=== PATIENT | male | born 1990 | race Caucasian/White ===

== ENCOUNTER 2017-06-27 21:40 | Inpatient (IN) | payer OTHER ==
--- NOTE | 2017-06-27 23:31 | HP ---
CIWA Score - CIWA Score Nausea/Vomitin Muscle Tremors: 2 Anxiety: 1-Mildly Anxious Agitation: 4-Moderately Restless Paroxysmal Sweats: 2 Orientation: 0-Oriented Tacttile Disturbances: 0-None Auditory Disturbances: 0-None Visual Disturbances: 0-None Headache: 3-Moderate CIWA-Ar Total Score: 14 Admission ROS BHS - HPI Chief Complaint: WITHDRAWAL SYMPTOMS Allergies/Adverse Reactions: Allergies Allergy/AdvReac Type Severity Reaction Status Date / Time No Known Allergies Allergy Verified 06/27/17 23:29 History of Present Illness: 26 Y.O. MAN WITH A HISTORY OF ALCOHOL DEPENDENCE IS HERE SEEKING DETOX. HE REPORTS HE WENT TO DETOX 3 MONTHS AGO AT ANOTHER FACILITY BUT LEFT AMA. HE REPORTS HE'S ENROLLED IN A MMTP. Exam Limitations: No Limitations - Ebola screening Have you traveled outside of the country in the last 21 days: No (N) Have you had contact with anyone from an Ebola affected area: No Do you have a fever: No - Review of Systems Constitutional: No Symptoms Reported EENT: reports: Tearing, Nose Congestion Respiratory: reports: No Symptoms reported Cardiac: reports: No Symptoms Reported GI: reports: Nausea, Abdominal cramping : reports: No Symptoms Reported Musculoskeletal: reports: No Symptoms Reported Integumentary: reports: No Symptoms Reported Neuro: reports: Tremors Endocrine: reports: No Symptoms Reported Hematology: reports: No Symptoms Reported Psychiatric: reports: Orientated x3, Anxious, Depressed, other (ADD) Other Systems: Reviewed and Negative Patient History - Patient Medical History Hx Anemia: No Hx Asthma: No Hx Chronic Obstructive Pulmonary Disease (COPD): No Hx Cancer: No Hx Cardiac Disorders: No Hx Congestive Heart Failure: No Hx Hypertension: No Hx Hypercholesterolemia: No Hx Pacemaker: No HX Cerebrovascular Accident: No Hx Seizures: No Hx Dementia: No Hx Diabetes: No Hx Gastrointestinal Disorders: No Hx Liver Disease: No Hx Genitourinary Disorders: No Hx Sexually Transmitted Disorders: No Hx Renal Disease (ESRD): No Hx Thyroid Disease: No Hx Human Immunodeficiency Virus (HIV): No Hx Hepatitis C: Yes Hx Depression: Yes Hx Suicide Attempt: No Hx Bipolar Disorder: No Hx Schizophrenia: No Other Medical History: ADD, ANXIETY - Patient Surgical History Past Surgical History: No - PPD History Previous Implant?: Yes Documented Results: Negative w/o proof PPD to be Administered?: Yes - Reproductive History Patient is a Female of Child Bearing Age (11 -55 yrs old): No - Smoking Cessation Smoking history: Current every day smoker Have you smoked in the past 12 months: Yes Aproximately how many cigarettes per day: 20 Initiated information on smoking cessation: Yes 'Breaking Loose' booklet given: 06/27/17 - Substance & Tx. History Hx Alcohol Use: Yes Hx Substance Use: No Substance Use Type: Alcohol Hx Substance Use Treatment: Yes (LAST DETOX 3 MONTHS AGO; CURRENTLY IN A MMTP ) - Substances Abused Alcohol Route: Oral Frequency: Daily Amount used: 8 CANS OF BEER Age of first use: 22 Date of Last Use: 06/26/17 Family Disease History - Family Disease History Family History: Denies Admission Physical Exam [facility] - Vital Signs Vital Signs: Last Vital Signs Temp Pulse Resp BP Pulse Ox 96.1 F L 88 16 127/73 06/27/17 23:45 06/27/17 23:45 06/27/17 23:45 06/27/17 23:45 - Physical General Appearance: Yes: Disheveled, Thin, Tremorous, Irritable, Anxious HEENTM: Yes: Hearing grossly Normal, Normocephalic, Normal Voice Respiratory: Yes: Chest Non-Tender, Lungs Clear, Normal Breath Sounds, No Respiratory Distress, No Accessory Muscle Use Neck: Yes: No masses,lesions,Nodules, Trachea in good position Breast: Yes: Breast Exam Deferred Cardiology: Yes: Regular Rate, S1, S2 Abdominal: Yes: Normal Bowel Sounds, Non Tender, Flat, Soft Genitourinary: Yes: Other (NO COMPLAINTS REPORTED) Back: Yes: Normal Inspection Musculoskeletal: Yes: full range of Motion, Gait Steady, Pelvis Stable Extremities: Yes: Tremors Neurological: Yes: Alert, Normal Response Integumentary: Yes: Normal Color, Dry, Warm Lymphatic: Yes: Within Normal Limits - Diagnostic (1) Alcohol dependence with uncomplicated withdrawal Current Visit: Yes Status: Chronic (2) Opioid dependence on agonist therapy Current Visit: Yes Status: Chronic (3) Underweight Current Visit: Yes Status: Chronic Cleared for Admission [facility] - Detox or Rehab [facility] Level of Care: Medically Managed Detox Regimen/Protocol: Valium [facility] Breath Alcohol Content Breath Alcohol Content: 0 Vital Signs - Vital Signs Vital Signs Refused: No Temperature: 96.1 F Temperature Source: Oral Pulse Rate: 88 Respiratory Rate: 16 Blood Pressure: 127/73 BP Location: Left Arm Blood Pressure Position: Sitting - Height Height: 6 ft - Weight Weight: 130 lb Weight Measurement Method: Standing Scale Body Mass Index (BMI): 17.6 Urine Drug Screen - Test Device Lot Number: [id number] Expiration Date: 03/29/19 - Control Is Test Valid: Yes - Results Drug Screen Negative: No Urine Drug Screen Results: KOSTAS-Cocaine, MTD-Methadone
[2017-06-27 23:46] VITALS: BMI 17.6
[2017-06-27] MEDS ORDERED: NICOTINE POLACRILEX 2 MG GUM BUC PRN (23:52)
[2017-06-27] MEDS ORDERED: P-EPHED 60MG/TRIPROLIDI 2.5MG TABLET PO PRN (23:52)
[2017-06-27] MEDS ORDERED: MENTHOL/PHENOL 1 EACH UD MM PRN (23:52)
[2017-06-27] MEDS ORDERED: MAGNESIUM HYDROX 2400MG/30ML ORAL SUSPENSION 30 ML CUP PO PRN (23:52)
[2017-06-27] MEDS ORDERED: LOPERAMIDE HCL 2 MG CAPSULE PO PRN (23:52)
[2017-06-27] MEDS ORDERED: guaiFENesin/D-METHORPHAN HB 10 ML UNIT-DOSE CUPS PO PRN (23:52)
[2017-06-27] MEDS ORDERED: MAGNESIUM CITRATE 300 ML BOTTLE PO PRN (23:52)
[2017-06-27] MEDS ORDERED: diazePAM 5 MG TABLET PO ONE (23:52)
[2017-06-27] MEDS ORDERED: diazePAM 5 MG TABLET PO PRN (23:52)
[2017-06-27] MEDS ORDERED: IBUPROFEN 400 MG TABLET (FP) PO PRN (23:52)
[2017-06-27] MEDS ORDERED: MAG HYDROX/AL HYDROX/SIMETH 30 ML UNIT-DOSE CUP PO PRN (23:52)
[2017-06-27] MEDS ORDERED: hydrOXYzine PAMOATE 50 MG CAPSULE (FP) PO PRN (23:52)
[2017-06-28] MEDS: diphenhydrAMINE HCL 50 MG CAPSULE PO PRN (01:04)
[2017-06-28] MEDS ORDERED: diazePAM 5 MG TABLET PO ONE (07:06)
[2017-06-28] MEDS: diazePAM 5 MG TABLET PO SCH ×5 (07:13→22:16)
[2017-06-28] MEDS ORDERED: METHADONE HCL 40 MG DISPERSABLE TABLET PO ONE (08:30)
[2017-06-28 10:01] LABS: MCH 29.7 pg (25.7-33.7); MEAN CELL VOLUME 89.9 fl (80-96); MEAN PLT VOLUME 7.3 fl (7.5-11.1); PLATELET COUNT 333 K/MM3 (134-434); RDW 15.4 % (11.9-15.9); WHITE BLOOD COUNT 7.3 K/mm3 (4.0-10.0)
[2017-06-28 10:33] LABS: ALBUMIN 3.2 g/dl (3.4-5.0); ANION GAP 7 (8-16); CALCIUM 8.8 mg/dL (8.5-10.1); CO2 30 mmol/L (21-32); CREATININE 0.8 mg/dL (0.7-1.3); GLUCOSE,RANDOM 78 mg/dL (74-106); SGOT/AST 19 U/L (15-37); SGPT/ALT 22 U/L (12-78)
[2017-06-28 10:36] LABS: ALK PHOS 103 U/L (45-117); BILIRUBIN,TOTAL 0.5 mg/dL (0.2-1.0); TOT PROT 6.3 g/dl (6.4-8.2)
[2017-06-28] MEDS: PRENATAL VITAMINS W/ FOLIC ACID TABLET (FP) PO SCH (11:07)
[2017-06-28] MEDS: diazePAM 5 MG TABLET PO PRN ×2 (11:08→20:14)
[2017-06-28] MEDS: NICOTINE 21 MG/24 HOURS TOPICAL PATCH TD SCH (11:08)
[2017-06-28] MEDS: ACETAMINOPHEN 325 MG TABLET (FP) PO PRN ×2 (11:09→22:17)
--- NOTE | 2017-06-28 12:24 | EKG ---
Test Reason : Blood Pressure : / mmHG Vent. Rate : 062 BPM Atrial Rate : 062 BPM P-R Int : 136 ms QRS Dur : 094 ms QT Int : 416 ms P-R-T Axes : 063 085 080 degrees QTc Int : 422 ms NORMAL SINUS RHYTHM WITH SINUS ARRHYTHMIA NORMAL ECG WHEN COMPARED WITH ECG OF 28-JUN-2017 00:05, NO SIGNIFICANT CHANGE WAS FOUND Confirmed by MISTI DONOVAN MD ([id number]) on 06/28/2017 12:23:45 PM Referred By: Confirmed By:MISTI DONOVAN MD
--- NOTE | 2017-06-28 12:36 | PN ---
[facility] CIWA - CIWA Score Nausea/Vomitin-No Nausea/No Vomiting Muscle Tremors: 4-Moderate,w/Arms Extend Anxiety: 4-Mod. Anxious/Guarded Agitation: 2 Paroxysmal Sweats: 3 Orientation: 0-Oriented Tacttile Disturbances: 3-Moderate Itch/Numb/Burn Auditory Disturbances: 2-Mild Harshness/Frighten Visual Disturbances: 0-None Headache: 0-None Present CIWA-Ar Total Score: 18 BHS Progress Note (SOAP) Subjective: Interrupted sleep, Tremors, Body Aches, Sweating. Objective: PT. A & O X 3, OBSERVED AMBULATING ON UNIT. NO ACUTE DISTRESS. PT. DENIES CHEST PAIN. 06/28/17 12:34 Vital Signs Temperature 97.1 F L 06/28/17 00:52 Pulse Rate 82 06/28/17 00:52 Respiratory Rate 16 06/28/17 03:30 Blood Pressure 110/83 06/28/17 00:52 O2 Sat by Pulse Oximetry (%) Laboratory Tests 06/28/17 06/28/17 07:00 07:00 WBC 7.3 RBC 4.11 Hgb 12.2 Hct 37.0 MCV 89.9 MCH 29.7 MCHC 33.0 RDW 15.4 Plt Count 333 MPV 7.3 L Sodium 145 Potassium 3.6 Chloride 108 H Carbon Dioxide 30 Anion Gap 7 L BUN 14 Creatinine 0.8 Creat Clearance w eGFR > 60 Random Glucose 78 Calcium 8.8 Total Bilirubin 0.5 AST 19 ALT 22 Alkaline Phosphatase 103 Total Protein 6.3 L Albumin 3.2 L LABS NOTED. RPR AND UA RESULTS PENDING. 06/28/17 12:35 Assessment: 06/28/17 12:34 WITHDRAWAL SYMPTOMS. Plan: CONTINUE DETOX.
--- NOTE | 2017-06-28 14:57 | CONSULT ---
[facility] Psychiatric Consult - Data Date of interview: 06/28/17 Admission source: [facility] Identifying data: First admission to [facility] for this 26 y/o male seeking detox treatment on for opioid and cocaine dependence.Patient is single without children,homeless,unemployed and supported on food stamps. Substance Abuse History: Confirmed by patient in this interview. Smoking Cessation. Smoking history: Current every day smoker. Have you smoked in the past 12 months: Yes. Aproximately how many cigarettes per day: 20. Initiated information on smoking cessation: Yes. 'Breaking Loose' booklet given: . - Substance & Tx. History. Hx Alcohol Use: Yes. Hx Substance Use: No. Substance Use Type: Alcohol. Hx Substance Use Treatment: Yes (LAST DETOX 3 MONTHS AGO; CURRENTLY IN A MMTP ). - Substances Abused. Alcohol. Route: Oral. Frequency: Daily. Amount used: 8 CANS OF BEER. Age of first use: 22. Date of Last Use: 06/26/17 Medical History: Hepatitis C. Psychiatric History: Patient admits to one psychiatric hospitalization in [place] (months ago).Diagnosed with ADD and Anxiety Disorder.Used to be prescribed prozac,lorazepam and adderall.No compliant with medications for past four months.No psychiatric OPD care provider.Mr Harris is totally lost to follow up.He denies history of suicide attempts. Physical/Sexual Abuse/Trauma History: No reported history of sexual abuse. Additional Comment: Urine Drug Screen Results: KOSTAS-Cocaine, MTD-Methadone.Noted. Mental Status Exam - Mental Status Exam Alert and Oriented to: Time, Place, Person Cognitive Function: Grossly Intact Patient Appearance: Unkempt, Disheveled Mood: Nervous, Withdrawn Affect: Mood Congruent Patient Behavior: Sedated (light sedation), Fatigued Speech Pattern: Clear, Appropriate Voice Loudness: Normal Thought Process: Goal Oriented Thought Disorder: Not Present Hallucinations: Denies Suicidal Ideation: Denies Homicidal Ideation: Denies Insight/Judgement: Poor Sleep: Well Appetite: Good Muscle strength/Tone: Normal Gait/Station: Normal Psychiatric Findings - Problem List ([place] 1, 2,3) (1) Alcohol dependence with uncomplicated withdrawal Status: Chronic (2) Opioid dependence on agonist therapy Status: Acute (3) Nicotine dependence Status: Acute Qualifiers: Nicotine product type: cigarettes Substance use status: unspecified nicotine-induced disorder Qualified Code(s): F17.219 - Nicotine dependence, cigarettes, with unspecified nicotine-induced disorders (4) Substance induced mood disorder Status: Acute (5) ADD (attention deficit disorder) Status: Acute Comment: Self-report. - Initial Treatment Plan Initial Treatment Plan: Psychoeducation.Detoxification.Prozac 20 mg po daily ( patient's request).Side effects/benefits discussed with the patient.He agrees to follow this careplan.Observation.
[2017-06-28] MEDS ORDERED: THIAMINE HCL 100 MG TABLET (FP) PO SCH (22:00)
[2017-06-29] MEDS: diazePAM 5 MG TABLET PO PRN ×2 (01:20→10:50)
[2017-06-29] MEDS: diphenhydrAMINE HCL 50 MG CAPSULE PO PRN (01:21)
[2017-06-29] MEDS: diazePAM 5 MG TABLET PO SCH ×2 (05:34→13:08)
[2017-06-29] MEDS ORDERED: METHADONE HCL 10 MG TABLET PO ONE (07:30)
[2017-06-29] MEDS ORDERED: METHADONE HCL 10 MG TABLET ONE (08:32)
[2017-06-29] MEDS ORDERED: METHADONE HCL 40 MG DISPERSABLE TABLET ONE (08:32)
[2017-06-29 09:18] VITALS: BP 112/70; PULSE 75; TEMP 98
[2017-06-29] MEDS ORDERED: METHADONE 40 MG, METHADONE 10 MG PO ONE (10:00)
[2017-06-29] MEDS ORDERED: diazePAM 5 MG TABLET PO SCH (10:00)
[2017-06-29] MEDS ORDERED: FLUoxetine HCL 20 MG CAPSULE (FP) PO SCH (10:00)
[2017-06-29] MEDS: PRENATAL VITAMINS W/ FOLIC ACID TABLET (FP) PO SCH (10:47)
[2017-06-29] MEDS: NICOTINE 21 MG/24 HOURS TOPICAL PATCH TD SCH (10:48)
--- NOTE | 2017-06-29 11:27 | PN ---
[facility] CIWA - CIWA Score Nausea/Vomitin-Mild Nausea/No Vomiting Muscle Tremors: 2 Anxiety: 6 Agitation: 4-Moderately Restless Paroxysmal Sweats: 2 Orientation: 0-Oriented Tacttile Disturbances: 2-Mild Itch/Numbness/Burn Auditory Disturbances: 0-None Visual Disturbances: 0-None Headache: 0-None Present CIWA-Ar Total Score: 17 BHS Progress Note (SOAP) Subjective: Anxious, Tremors. Objective: PT. A & O X 3, OBSERVED AMBULATING ON UNIT. NO ACUTE DISTRESS. 06/29/17 11:25 Vital Signs Temperature 98.0 F 06/29/17 09:17 Pulse Rate 75 06/29/17 09:17 Respiratory Rate 18 06/29/17 09:17 Blood Pressure 112/70 06/29/17 09:17 O2 Sat by Pulse Oximetry (%) Laboratory Tests 06/28/17 06/28/17 06/28/17 07:00 07:00 07:00 WBC 7.3 RBC 4.11 Hgb 12.2 Hct 37.0 MCV 89.9 MCH 29.7 MCHC 33.0 RDW 15.4 Plt Count 333 MPV 7.3 L Sodium 145 Potassium 3.6 Chloride 108 H Carbon Dioxide 30 Anion Gap 7 L BUN 14 Creatinine 0.8 Creat Clearance w eGFR > 60 Random Glucose 78 Calcium 8.8 Total Bilirubin 0.5 AST 19 ALT 22 Alkaline Phosphatase 103 Total Protein 6.3 L Albumin 3.2 L RPR Titer Nonreactive LABS NOTED. RESULTS OF ADMISSION UA PENDING. 06/29/17 11:26 Assessment: 06/29/17 11:25 WITHDRAWAL SYMPTOMS. Plan: CONTINUE DETOX.
--- NOTE | 2017-06-29 11:34 | EKG ---
Test Reason : Blood Pressure : / mmHG Vent. Rate : 060 BPM Atrial Rate : 060 BPM P-R Int : 134 ms QRS Dur : 096 ms QT Int : 432 ms P-R-T Axes : 067 086 079 degrees QTc Int : 432 ms SINUS RHYTHM WITH MARKED SINUS ARRHYTHMIA OTHERWISE NORMAL ECG NO PREVIOUS ECGS AVAILABLE Confirmed by SJ FLORES, SEGUN ([id number]) on 06/29/2017 11:34:03 AM Referred By: Confirmed By:SEGUN GUSTAFSON MD
--- NOTE | 2017-06-29 12:55 | PN ---
[facility] Progress Note Note: Patient suddenly quite lethargic, developing over the last 1 hour. Pt. minimally alert, and difficult to rouse. VS: BP: 98/62 (manual); P: 57; O2: 95% ; RR: 14. No known history of recent head trauma. Pt. currently on Valium Detox regimen for Alcohol use. Pt. also on MMTP. DAily Maintenance Dose: 60 mg. However, since pt. did not take normal maintenance dose of 60 mg for several days prior to this Detox admission, pt. was given 40 mg PO yesterday (06/28/2017 ), 50 mg PO today (06/29/2017), and then is scheduled to receive 60 mg PO tomorrow (06/30/2017), then going forward. Report given to Dr. Quintero at [facility]. Patient taken via ambulance to [facility] for further evaluation. Vince Curtis NP
[2017-06-29 16:15] LABS: URINE APPEARANCE SLCLOUDY; URINE BILIRUBIN NEGATIVE (NEGATIVE); URINE BLOOD NEGATIVE (NEGATIVE); URINE COLOR YELLOW; URINE GLUCOSE (UA) NEGATIVE (NEGATIVE); URINE KETONE NEGATIVE (NEGATIVE); URINE LEUK ESTERASE TRACE (NEGATIVE); URINE NITRITE NEGATIVE (NEGATIVE); URINE PROTEIN NEGATIVE (NEGATIVE); URINE UROBILINOGEN NEGATIVE mg/dL (0.2-1.0)
[2017-06-29 16:44] LABS: URINE MUCUS RARE; URINE RBC <1 /hpf (0-3); URINE WBC 5 /hpf (3-5)
[2017-06-29] MEDS ORDERED: ONDANSETRON 4 MG/2 ML VIAL IVPB PRN (17:40)
[2017-06-29] MEDS ORDERED: ACETAMINOPHEN 650 MG SUPP.RECT PR PRN (17:40)
--- NOTE | 2017-06-29 18:02 | HP ---
CHIEF COMPLAINT: Lethargy PCP: none HISTORY OF PRESENT ILLNESS: 26 yo M with significant PMhx of alcohol and heroin abuse(on methadone) presents to ER from [address] [place] [address] lethargic and confused. He recently admitted to [address] [place] [address] for alcohol detox when he was given his methadone dose and valium he became lethargic and minimally response, subsequently transferred via EMS to the ER. In the ER he was found to be unconscious , agonal breathing and cyanotic. His pulse ox was 16% and BVM was initiated and O2 became 100%. He was started on narcan with good response. He subsequently became altered again with shallow respiration and started on Narcan drip. At the time of this history he was awake but confused. Denies CP,palpitations, SOB, abd. pain, N/V. ER course was notable for: (1)CXR showed no acute pathology. (2)Continued on Narcan drip and supplemental O2 (3) Recent Travel: Denies PAST MEDICAL HISTORY:polysubstance abuse, ADHD, Hep C PAST SURGICAL HISTORY: bilateral orbital metal plates following facial trauma. Social History: Smokinppd Alcohol:abuse; 8 cans of beer daily Drugs: cocaine and methadone. Family History: Allergies No Known Allergies Allergy (Verified 06/27/17 23:29) HOME MEDICATIONS: Home Medications Medication Instructions Recorded NK [No Known Home Medication] 06/28/17 REVIEW OF SYSTEMS CONSTITUTIONAL: generalized weakness Absent: fever, chills, diaphoresis, , malaise, loss of appetite, weight change HEENT: Absent: rhinorrhea, nasal congestion, throat pain, throat swelling, difficulty swallowing, mouth swelling, ear pain, eye pain, visual changes CARDIOVASCULAR: Absent: chest pain, syncope, palpitations, irregular heart rate, lightheadedness , peripheral edema RESPIRATORY: Absent: cough, shortness of breath, dyspnea with exertion, orthopnea, wheezing, stridor, hemoptysis GASTROINTESTINAL: Absent: abdominal pain, abdominal distension, nausea, vomiting, diarrhea, constipation, melena, hematochezia GENITOURINARY: Absent: dysuria, frequency, urgency, hesitancy, hematuria, flank pain, genital pain MUSCULOSKELETAL: Absent: myalgia, arthralgia, joint swelling, back pain, neck pain SKIN: Absent: rash, itching, pallor HEMATOLOGIC/IMMUNOLOGIC: Absent: easy bleeding, easy bruising, lymphadenopathy, frequent infections ENDOCRINE: Absent: unexplained weight gain, unexplained weight loss, heat intolerance, cold intolerance NEUROLOGIC: headache Absent:, focal weakness or paresthesias, dizziness, unsteady gait, seizure, mental status changes, bladder or bowel incontinence PSYCHIATRIC: Absent: anxiety, depression, suicidal or homicidal ideation, hallucinations. PHYSICAL EXAMINATION Vital Signs - 24 hr 06/28/17 06/29/17 06/29/17 21:54 00:30 04:09 Temperature 96 F L Pulse Rate 74 Respiratory 16 18 18 Rate Blood Pressure 132/92 06/29/17 06/29/17 06:48 : Temperature 98.3 F 98.0 F Pulse Rate 85 75 Respiratory 18 18 Rate Blood Pressure 122/76 112/70 GENERAL: Awake, alert, confused. NAD HEAD: NC/AT EYES:PERRLA,EOMI, sclera anicteric, conjunctiva clear. No lid lag. EARS, NOSE, THROAT: dry mucous membranes. NECK: supple, no jvd LUNGS: CTAB. No wheezes, and no crackles. No accessory muscle use. HEART: RRR, normal S1 and S2 without murmur, rub or gallop. ABDOMEN: Soft, NT/ND, normoactive bowel sounds, no guarding, no rebound, no masses. No hepatomegaly or splenomegaly. MUSCULOSKELETAL: Normal range of motion at all joints. No bony deformities or tenderness. No CVA tenderness. UPPER EXTREMITIES: 2+ pulses, warm, well-perfused. No cyanosis. No clubbing. No peripheral edema. LOWER EXTREMITIES: 2+ pulses, warm, well-perfused. No calf tenderness. No peripheral edema. multiple abrasions of bilateral feet. NEUROLOGICAL: Cranial nerves II-XII intact. Normal speech. gait not observed. PSYCHIATRIC:lethargic. SKIN: multiple abrasions on soles and heels bilaterally. Laboratory Results - last 24 hr 06/29/17 10:30 Urine Color Yellow Urine Appearance Slcloudy Urine pH 5.0 Urine Protein Negative Urine Glucose (UA) Negative Urine Ketones Negative Urine Blood Negative Urine Nitrite Negative Urine Bilirubin Negative Urine Urobilinogen Negative Ur Leukocyte Esterase Trace Urine RBC <1 Urine WBC 5 Urine Mucus Rare ASSESSMENT/PLAN: 26 yo M with significant PMhx of alcohol and heroin abuse(on methadone) admitted to ICU for adverse reaction to therapeutic methadone. Problem List - Problem (1) Methadone causing adverse effect in therapeutic use Assessment/Plan: * Patient will be admitted to ICU for close monitoring. * Will continue Narcan drip * repeat CXR in AM * repeat labs. * Avoid sedating medication * Supplemental oxygen via NC to maintain spO2 >90% (2) Nicotine dependence Assessment/Plan: * Will give nicotine patch 21mg transdermal Visit type - Emergency Visit Emergency Visit: Yes ED Registration Date: 06/27/17 Care time: The patient presented to the Emergency Department on the above date and was hospitalized for further evaluation of their emergent condition. - New Patient This patient is new to me today: Yes Date on this admission: 06/30/17 - Critical Care Critical Care patient: Yes Total Critical Care Time (in minutes): 35 Critical Care Statement: The care of this patient involved high complexity decision making to prevent further life threatening deterioration of the patient 's condition and/or to evaluate & treat vital organ system(s) failure or risk of failure.
[2017-06-29] MEDS ORDERED: MUPIROCIN 2% TOPICAL OINTMENT FOR DECOLONIZATION NS SCH (22:00)
[2017-06-29] MEDS ORDERED: CHLORHEXIDINE GLUCONATE 4% CLEANSER FOR DECOLONIZATION TP SCH (22:00)
[2017-06-30] MEDS ORDERED: METHADONE 40 MG, METHADONE 20 MG PO SCH (06:00)
[2017-06-30] MEDS ORDERED: METHADONE HCL 40 MG DISPERSABLE TABLET PO SCH (06:00)
[2017-06-30] MEDS ORDERED: diazePAM 5 MG TABLET PO SCH (10:00)
[2017-07-01] MEDS ORDERED: diazePAM 5 MG TABLET PO SCH (10:00)
[2017-07-02] MEDS ORDERED: diazePAM 5 MG TABLET PO SCH (10:00)
== END 2017-06-29 21:53 | disposition short-term general hospital (02) | DRG 773 ==
LOC: YASAS 21:40 → Y3N 23:32
PROVIDERS: ADMIT Internal Medicine Addiction Medicine; ATTEND Internal Medicine Addiction Medicine
PROC: HZ2ZZZZ Detoxification Services for Substance Abuse Treatment (ICD-10-PCS; principal; 2017-06-27)
DX: F10.230 Alcohol dependence with withdrawal, uncomplicated (principal); F11.20 Opioid dependence, uncomplicated; F17.210 Nicotine dependence, cigarettes, uncomplicated; F19.24 Other psychoactive substance dependence with psychoactive substance-induced mood disorder; F98.8 Other specified behavioral and emotional disorders with onset usually occurring in childhood and adolescence; B18.2 Chronic viral hepatitis C; R63.6 Underweight; Z68.1 Body mass index [BMI] 19.9 or less, adult; R53.83 Other fatigue; Z59.0 Homelessness
CPT/HCPCS: 36415; 80053; 81003; 81015; 85027; 86593; 93005; 93010

== ENCOUNTER 2017-06-29 13:22 | Inpatient (IN) | payer OTHER ==
[2017-06-29] MEDS ORDERED: RAPID SEQUENCE INTUBATION KIT NR ONE (14:01)
[2017-06-29] MEDS ORDERED: NALOXONE HCL 0.4 MG/ML VIAL ONE (14:01)
--- NOTE | 2017-06-29 14:13 | PDOC ---
History of Present Illness - General Chief Complaint: Lethargy Stated Complaint: WEAKNESS Time Seen by Provider: 06/29/17 13:25 Exam Limitations: Clinical Condition - History of Present Illness Initial Comments: 26 yo M sent by [facility] for AMS. As per EMS report, patient was previously on methadone, stopped it 5 days ago. He was agitated earlier today (currently in detox for alcohol), was given valium and methadone. Now sent to ED with AMS, lethargy. On initial evaluation patient is unconscious, with agonal breathing, pale and cyanotic. Past History - Past Medical History Allergies/Adverse Reactions: Allergies Allergy/AdvReac Type Severity Reaction Status Date / Time No Known Allergies Allergy Verified 06/27/17 23:29 Home Medications: Ambulatory Orders NK [No Known Home Medication] 06/28/17 Anemia: No Asthma: No Cancer: No Cardiac Disorders: No CVA: No COPD: No CHF: No Dementia: No Diabetes: No GI Disorders: No Disorders: No HTN: No Hypercholesterolemia: No Kidney Stones: No Liver Disease: No Suicide Attempt (Hx): No Seizures: No Thyroid Disease: No - Reproductive History Testicular Surgery: No - Psycho/Social/Smoking Cessation Hx Anxiety: Yes Suicidal Ideation: No Smoking History: Current every day smoker Have you smoked in the past 12 months: Yes Number of Cigarettes Smoked Daily: 20 'Breaking Loose' booklet given: 06/27/17 Hx Alcohol Use: Yes Drug/Substance Use Hx: No Substance Use Type: Alcohol Hx Substance Use Treatment: Yes Review of Systems - Review of Systems Able to Perform ROS?: No *Physical Exam - Physical Exam Comments: GENERAL: Lethargic, cyanotic, does not awaken to noxious stimuli. HEAD: No signs of trauma EYES: Pupils pinpoint and sluggish. ENT: Auricles normal inspection, nares patent, dry mucosa NECK: Normal ROM, supple, no lymphadenopathy, JVD, or masses LUNGS: Agonal breathing. HEART: Bradycardic. ABDOMEN: Soft, normoactive bowel sounds. No guarding, no rebound. No masses EXTREMITIES: No edema. Healing lesion to the L hand. NEUROLOGICAL: Unresponsive. SKIN: Warm, Dry, normal turgor, no rashes or lesions noted. ED Treatment Course - LABORATORY CBC & Chemistry Diagram: 06/29/17 16:05 06/29/17 15:00 Medical Decision Making - Medical Decision Making 06/29/17 14:20 As I was doing initial patient evaluation, patient noted to have intermittent agonal breathing, cyanosis, pallor. I placed him on monitor and found O2Sat to be 16%, then down to 0%. I was able to use BVM and get patient's sat back to 100 %, placed nasopharyngeal airway. Subsequently gave him narcan 0.4mg with good response. Currently satting 100% on NRB, with end tidal CO2 monitor on. Will cont to monitor. 06/29/17 15:25 Patient becoming altered again, respirations becoming more shallow, patient not arousable. Will start Narcan drip. CBC shows significant decrease in H&H form yesterday, will repeat, as this is likely erroneous. 06/29/17 16:56 Case d/w Dr. Goddard, will accept patient to the ICU. Will admit to hospitalist. *DC/Admit/Observation/Transfer Diagnosis at time of Disposition: Adverse effect of methadone in therapeutic use Qualifiers: Encounter type: initial encounter Qualified Code(s): T40.3X5A - Adverse effect of methadone, initial encounter Benzodiazepine-based tranquilizers causing adverse effect Qualifiers: Encounter type: initial encounter Qualified Code(s): T42.4X5A - Adverse effect of benzodiazepines, initial encounter - Discharge Dispostion Condition at time of disposition: Critical Admit: Yes
[2017-06-29] MEDS ORDERED: NALOXONE HCL 0.4 MG/ML VIAL IVPUSH ONE (14:14)
[2017-06-29] MEDS ORDERED: SODIUM CHLORIDE 1,000 ML IV STA (14:14)
[2017-06-29 14:31] VITALS: BMI 17.6
[2017-06-29 15:21] LABS: BASOPHIL 0.7 % (0-2.0); EOSINOPHIL 1.7 % (0-4.5); MCH 29.6 pg (25.7-33.7); MCHC 32.8 g/dl (32.0-35.9); MEAN PLT VOLUME 6.9 fl (7.5-11.1); NEUTROPHILS 69.3 % (42.8-82.8); PLATELET COUNT 228 K/MM3 (134-434); RDW 15.1 % (11.9-15.9); WHITE BLOOD COUNT 7.2 K/mm3 (4.0-10.0)
[2017-06-29] MEDS ORDERED: NALOXONE HCL 2 MG in DEXTROSE 5%-WATER - 495 ML IV SCH (15:30)
[2017-06-29 15:54] LABS: ALBUMIN 2.4 g/dl (3.4-5.0); ALK PHOS 60 U/L (45-117); ANION GAP 3 (8-16); BILIRUBIN,TOTAL 0.2 mg/dL (0.2-1.0); CALCIUM 7.1 mg/dL (8.5-10.1); CO2 32 mmol/L (21-32); CREATININE 0.6 mg/dL (0.7-1.3); GLUCOSE,RANDOM 67 mg/dL (74-106); SGOT/AST 24 U/L (15-37); SGPT/ALT 23 U/L (12-78); TOT PROT 4.8 g/dl (6.4-8.2)
[2017-06-29] MEDS ORDERED: DEXTROSE 50%-WATER - 25 GM/50 ML VIAL IVPUSH ONE (16:10)
[2017-06-29] MEDS ORDERED: DEXTROSE 50%-WATER 50 ML DISP.SYRIN ONE (16:14)
[2017-06-29 16:29] LABS: BASOPHIL 0.6 % (0-2.0); EOSINOPHIL 1.3 % (0-4.5); MCH 29.9 pg (25.7-33.7); MCHC 33.4 g/dl (32.0-35.9); MEAN CELL VOLUME 89.4 fl (80-96); MEAN PLT VOLUME 7.3 fl (7.5-11.1); NEUTROPHILS 72.5 % (42.8-82.8); PLATELET COUNT 326 K/MM3 (134-434); RDW 15.1 % (11.9-15.9); WHITE BLOOD COUNT 11.4 K/mm3 (4.0-10.0)
--- NOTE | 2017-06-29 18:10 | PN ---
Teaching Attending Note Name of Resident: Clifton Olguin ATTENDING PHYSICIAN STATEMENT I saw and evaluated the patient. I reviewed the resident's note and discussed the case with the resident. I agree with the resident's findings and plan as documented. SUBJECTIVE: This is a 26 year old man with a history of ADHD, polysubstance abuse who comes to the ER from [facility] for altered mental status. He is currently awake and alert. He says he was admitted to [facility] yesterday for alcohol detox. He had been on Methadone maintenance 60 mg daily but had stopped taking it several days ago because he wanted to be off it. He was started on Valium detox yesterday. He was also given Methadone 40 mg yesterday.. This morning he was agitated. He was given Valium 10 mg, Methadone 50 mg, and Prozac 20 mg. He became lethargic and difficult to arouse. BP was 98/62, HR 57, RR 14, O2 sat 95%. He was sent to the ER for evaluation. He says he doesn't know what happened but believes he stopped breathing. On arrival, he was noted to be unconscious, pale, cyanotic and breathing agonally. His O2 sat was 16% and BVM was used. O2 sat improved to 100%. He was given Narcan 0.4 mg and he awoke. He again became lethargic with shallow respirations and a Narcan drip was started. OBJECTIVE: Vital Signs Period Temp Pulse Resp BP Sys/Escobar Pulse Ox Last 24 Hr 98.4 F 58-104 6-14 102-121/74-84 21-100 HEART: S1S2, RRR LUNGS: Clear ABDOMEN: Soft, non-tender, non-distended, normal BS EXTREMITIES: No edema ASSESSMENT AND PLAN: This is a 26 year old man with a history of ADHD, polysubstance abuse who presented to the ER from [facility] with altered mental status. 1. Acute toxic metabolic encephalopathy and acute hypoxic respiratory failure secondary to substance abuse, Methadone, Valium - Continue Narcan drip - Hold Methadone - Admit to ICU - Continue oxygen to maintain saturation > 90% 2. Alcohol withdrawal - Continue Valium detox 3. Polysubstance abuse (cocaine, heroin, alcohol) 4. Continuous alcohol abuse 5. Nicotine dependence - Nicotine patch 6. ADHD
[2017-06-29 19:59] LABS: URINE APPEARANCE CLEAR; URINE BILIRUBIN NEGATIVE (NEGATIVE); URINE BLOOD NEGATIVE (NEGATIVE); URINE COLOR LTYELLOW; URINE GLUCOSE (UA) 1+ (NEGATIVE); URINE KETONE NEGATIVE (NEGATIVE); URINE LEUK ESTERASE NEGATIVE (NEGATIVE); URINE NITRITE NEGATIVE (NEGATIVE); URINE PROTEIN NEGATIVE (NEGATIVE); URINE UROBILINOGEN NEGATIVE mg/dL (0.2-1.0)
[2017-06-29 20:21] LABS: URINE MARIJUANA THC NEGATIVE ng/ml (CUTOFF=50)
[2017-06-29] MEDS ORDERED: ACETAMINOPHEN 650 MG SUPP.RECT PR PRN (21:07)
[2017-06-29] MEDS ORDERED: CHLORHEXIDINE GLUCONATE 4% CLEANSER FOR DECOLONIZATION TP SCH (22:00)
--- NOTE | 2017-06-29 22:00 | CONSULT ---
Consult Consult Specialty:: Pulm/CCM Reason for Consultation:: AMS in setting of possible opioid overdose - History of Present Illness Chief Complaint: AMS History of Present Illness: 26 yomwith Hx of heroin and alcohol abuse in rehab at [facility]. As per EMS report, patient was previously on methadone, stopped it 5 days ago. He was agitated earlier today and was given valium and methadone and became altered and lethargic. In ED RR5 and agonal. Resuscitated with BVM, Narcan pushes and Narcan drip. Now awake and oriented x3 with regular respirations. He is transferred to ICU on Narcan drip for monitoring. In ICU HD stable HR 96, BP 125/84, RR20 on NC 2L. Slight tremors to BUE, no hallucinations or agitation. Tolerating po. Narcan drip d/c'd. Call [facility] for current meds and continued standing valium po TID, nicotine patch and antidepressant. - Past Medical History Psych: Yes: Depression, Other (Opioid and alcohol abuse) - Alcohol/Substance Use Hx Alcohol Use: Yes - Smoking History Smoking history: Current every day smoker Have you smoked in the past 12 months: Yes Aproximately how many cigarettes per day: 20 - Social History Usual Living Arrangement: Other (Rehab center) Home Medications - Allergies Allergies/Adverse Reactions: Allergies Allergy/AdvReac Type Severity Reaction Status Date / Time No Known Allergies Allergy Verified 06/27/17 23:29 - Home Medications Home Medications: Ambulatory Orders NK [No Known Home Medication] 06/28/17 Family Disease History - Family Disease History Family History: Unremarkable Review of Systems Unable to obtain ROS, reason: AMS Physical Exam Vital Signs: Vital Signs Temperature 97.9 F 06/29/17 19:56 Pulse Rate 84 06/29/17 19:56 Respiratory Rate 16 06/29/17 19:56 Blood Pressure 114/78 06/29/17 19:56 O2 Sat by Pulse Oximetry (%) 100 06/29/17 19:56 Constitutional: Yes: Thin Eyes: Yes: WNL HENT: Yes: WNL, Atraumatic, Normocephalic Neck: Yes: WNL, Trachea Midline Cardiovascular: Yes: Regular Rate and Rhythm Respiratory: Yes: CTA Bilaterally Gastrointestinal: Yes: Soft, Other (NND,NT) Renal/: Yes: WNL, Other (Voiding) Musculoskeletal: Yes: WNL Extremities: Yes: WNL Edema: No Peripheral Pulses WNL: Yes Neurological: Yes: Tremors ...Motor Strength: WNL Labs: CBC,CMP WBC 11.4 K/mm3 (4.0-10.0) H D 06/29/17 16:05 RBC 3.88 M/mm3 (4.00-5.60) L D 06/29/17 16:05 Hgb 11.6 GM/dL (11.7-16.9) L D 06/29/17 16:05 Hct 34.6 % (35.4-49) L D 06/29/17 16:05 MCV 89.4 fl (80-96) 06/29/17 16:05 MCH 29.9 pg (25.7-33.7) 06/29/17 16:05 MCHC 33.4 g/dl (32.0-35.9) 06/29/17 16:05 RDW 15.1 % (11.9-15.9) 06/29/17 16:05 Plt Count 326 K/MM3 (134-434) D 06/29/17 16:05 MPV 7.3 fl (7.5-11.1) L 06/29/17 16:05 Neutrophils % 72.5 % (42.8-82.8) 06/29/17 16:05 Lymphocytes % 17.5 % (8-40) 06/29/17 16:05 Monocytes % 8.1 % (3.8-10.2) 06/29/17 16:05 Eosinophils % 1.3 % (0-4.5) 06/29/17 16:05 Basophils % 0.6 % (0-2.0) 06/29/17 16:05 Sodium 143 mmol/L (136-145) 06/29/17 15:00 Potassium 3.5 mmol/L (3.5-5.1) 06/29/17 15:00 Chloride 108 mmol/L (98-107) H 06/29/17 15:00 Carbon Dioxide 32 mmol/L (21-32) 06/29/17 15:00 Anion Gap 3 (8-16) L 06/29/17 15:00 BUN 11 mg/dL (7-18) D 06/29/17 15:00 Creatinine 0.6 mg/dL (0.7-1.3) L D 06/29/17 15:00 Creat Clearance w eGFR > 60 (>60) 06/29/17 15:00 Random Glucose 67 mg/dL (74-106) L 06/29/17 15:00 Calcium 7.1 mg/dL (8.5-10.1) L 06/29/17 15:00 Total Bilirubin 0.2 mg/dL (0.2-1.0) D 06/29/17 15:00 AST 24 U/L (15-37) D 06/29/17 15:00 ALT 23 U/L (12-78) 06/29/17 15:00 Alkaline Phosphatase 60 U/L (45-117) D 06/29/17 15:00 Total Protein 4.8 g/dl (6.4-8.2) L D 06/29/17 15:00 Albumin 2.4 g/dl (3.4-5.0) L D 06/29/17 15:00 Problem List - Problems (1) Methadone causing adverse effect in therapeutic use Code(s): T40.3X5A - ADVERSE EFFECT OF METHADONE, INITIAL ENCOUNTER Qualifiers : Encounter type: initial encounter Qualified Code(s): T40.3X5A - Adverse effect of methadone, initial encounter (2) Nicotine dependence Code(s): F17.200 - NICOTINE DEPENDENCE, UNSPECIFIED, UNCOMPLICATED Qualifiers : Nicotine product type: cigarettes Substance use status: unspecified nicotine-induced disorder Qualified Code(s): F17.219 - Nicotine dependence, cigarettes, with unspecified nicotine-induced disorders (3) Opioid dependence on agonist therapy Code(s): F11.20 - OPIOID DEPENDENCE, UNCOMPLICATED (4) Substance induced mood disorder Code(s): F19.94 - OTH PSYCHOACTIVE SUBSTANCE USE, UNSP W MOOD DISORDER (5) Alcohol dependence with uncomplicated withdrawal Code(s): F10.230 - ALCOHOL DEPENDENCE WITH WITHDRAWAL, UNCOMPLICATED (6) Underweight Code(s): R63.6 - UNDERWEIGHT Assessment/Plan 26 yom with Hx of heroin and alcohol abuse in rehab at [facility] admitted with AMS 2/2 opioid overdose now resuscitated on narcan drip. Plan: -Detox MD consult -Monitor for DT -CIWA protocol -Cont valium 5mg TID -Cont Nicotine patch -Cont antidepressant -NC O2 as needed for o2 sat>92% -Aspiration precautions -Advance diet as angelina
[2017-06-29] MEDS: diazePAM 5 MG TABLET PO SCH (22:09)
[2017-06-29] MEDS: MUPIROCIN 2% TOPICAL OINTMENT FOR DECOLONIZATION NS SCH (22:10)
[2017-06-29] MEDS ORDERED: ONDANSETRON 4 MG/2 ML VIAL IVPUSH PRN (22:26)
[2017-06-30] MEDS: diazePAM 5 MG TABLET PO SCH ×3 (05:55→23:50)
[2017-06-30 07:37] LABS: MCH 29.3 pg (25.7-33.7); MCHC 32.9 g/dl (32.0-35.9); MEAN CELL VOLUME 89.2 fl (80-96); PLATELET COUNT 293 K/MM3 (134-434); RDW 15.1 % (11.9-15.9); WHITE BLOOD COUNT 7.9 K/mm3 (4.0-10.0)
[2017-06-30 07:54] LABS: ALBUMIN 3.1 g/dl (3.4-5.0); ALK PHOS 69 U/L (45-117); ANION GAP 4 (8-16); BILIRUBIN,TOTAL 0.3 mg/dL (0.2-1.0); CALCIUM 8.6 mg/dL (8.5-10.1); CO2 36 mmol/L (21-32); CREATININE 0.7 mg/dL (0.7-1.3); GLUCOSE,RANDOM 107 mg/dL (74-106); SGOT/AST 20 U/L (15-37); SGPT/ALT 26 U/L (12-78); TOT PROT 6.4 g/dl (6.4-8.2)
--- NOTE | 2017-06-30 09:05 | EKG ---
Test Reason : Blood Pressure : / mmHG Vent. Rate : 076 BPM Atrial Rate : 076 BPM P-R Int : 138 ms QRS Dur : 090 ms QT Int : 390 ms P-R-T Axes : 067 089 078 degrees QTc Int : 438 ms NORMAL SINUS RHYTHM NONSPECIFIC INTRAVENTRICULAR CONDUCTION DEFECT WHEN COMPARED WITH ECG OF 28-JUN-2017 07:21, NO SIGNIFICANT CHANGE WAS FOUND Confirmed by ANAY CURRY MD ([id number]) on 06/30/2017 9:04:30 AM Referred By: Confirmed By:ANAY CURRY MD
[2017-06-30] MEDS ORDERED: FLUoxetine HCL 10 MG CAPSULE (FP) PO SCH (10:00)
[2017-06-30] MEDS ORDERED: PT OWN MED DRAWER 7, Y5N ONE ×2 (11:00→11:12)
[2017-06-30] MEDS: MUPIROCIN 2% TOPICAL OINTMENT FOR DECOLONIZATION NS SCH ×2 (11:08→21:28)
--- NOTE | 2017-06-30 11:10 | PN ---
Physical Exam: SUBJECTIVE: Patient seen and examined. PAtient anxious to get out of bed, requesting valium for anxiety. Straight necessary this morning to allow bladder emptying. OBJECTIVE: Vital Signs Period Temp Pulse Resp BP Sys/Escobar Pulse Ox Last 24 Hr 97.9 F-99.1 F 56-104 12-22 86-126/59-84 98-100 GEN: Very thin HEART: S1S2, RRR LUNGS: Clear ABDOMEN: Soft, non-tender, non-distended, normal BS NEURO: alert and orientedx3 EXTREMITIES: No edema Laboratory Results - last 24 hr 06/29/17 06/29/17 06/30/17 19:50 19:50 06:15 WBC 7.9 D RBC 4.09 Hgb 12.0 Hct 36.5 MCV 89.2 MCH 29.3 MCHC 32.9 RDW 15.1 Plt Count 293 MPV 7.0 L Sodium Potassium Chloride Carbon Dioxide Anion Gap BUN Creatinine Creat Clearance w eGFR Random Glucose Calcium Total Bilirubin AST ALT Alkaline Phosphatase Total Protein Albumin Urine Color Ltyellow Urine Appearance Clear Urine pH 6.0 Urine Protein Negative Urine Glucose (UA) 1+ H Urine Ketones Negative Urine Blood Negative Urine Nitrite Negative Urine Bilirubin Negative Urine Urobilinogen Negative Ur Leukocyte Esterase Negative Opiates Screen Negative Methadone Screen Positive Barbiturate Screen Negative Phencyclidine Screen Negative Ur Amphetamines Screen Negative MDMA (Ecstasy) Screen Negative Benzodiazepines Screen Positive Cocaine Screen Positive U Marijuana (THC) Screen Negative 06/30/17 06:15 WBC RBC Hgb Hct MCV MCH MCHC RDW Plt Count MPV Sodium 140 Potassium 3.9 Chloride 100 Carbon Dioxide 36 H Anion Gap 4 L BUN 7 D Creatinine 0.7 Creat Clearance w eGFR > 60 Random Glucose 107 H D Calcium 8.6 D Total Bilirubin 0.3 D AST 20 ALT 26 Alkaline Phosphatase 69 Total Protein 6.4 D Albumin 3.1 L D Urine Color Urine Appearance Urine pH Urine Protein Urine Glucose (UA) Urine Ketones Urine Blood Urine Nitrite Urine Bilirubin Urine Urobilinogen Ur Leukocyte Esterase Opiates Screen Methadone Screen Barbiturate Screen Phencyclidine Screen Ur Amphetamines Screen MDMA (Ecstasy) Screen Benzodiazepines Screen Cocaine Screen U Marijuana (THC) Screen Active Medications Generic Name Dose Route Start Last Admin Trade Name Freq PRN Reason Stop Dose Admin Acetaminophen 650 mg 06/29/17 21:07 Tylenol Suppository - [place] Q6H PRN FEVER OR PAIN Chlorhexidine Gluconate 1 applic 06/29/17 22:00 06/29/17 22:09 Hibiclens For Decolonization - TP 1 applic HS JG Administration Diazepam 5 mg 06/29/17 22:00 06/30/17 05:55 Valium - PO 5 mg TID JG Administration Fluoxetine HCl 30 mg 06/30/17 10:00 Prozac - PO DAILY JG Mupirocin 1 applic 06/29/17 22:00 06/29/17 22:10 Bactroban Ointment (For Decolonization) - NS 07/04/17 21:59 1 applic BID JG Administration Ondansetron HCl 4 mg 06/29/17 22:26 Zofran Injection IVPUSH Q6H PRN NAUSEA AND/OR VOMITING ASSESSMENT/PLAN: This is a 26 year old man with a history of ADHD, polysubstance abuse who presented to the ER from [facility] with altered mental status. Patient seen and examined PSYCH/NEURO - on valium - monitor for withdrawal - addiction medicine consult recommended observing patient in ICU for additional 24h then send back to [facility] for detox. Plan confirmed with Dr. Horner. - PO as tolerated - straight cath - DVT prophylaxis Visit type - Emergency Visit Emergency Visit: No - New Patient This patient is new to me today: Yes Date on this admission: 06/30/17 - Critical Care Critical Care patient: Yes Total Critical Care Time (in minutes): 35 Critical Care Statement: The care of this patient involved high complexity decision making to prevent further life threatening deterioration of the patient 's condition and/or to evaluate & treat vital organ system(s) failure or risk of failure.
--- NOTE | 2017-06-30 11:15 | PN ---
Teaching Attending Note Name of Resident: Tahd Jackson ATTENDING PHYSICIAN STATEMENT I saw and evaluated the patient. I reviewed the resident's note and discussed the case with the resident. I agree with the resident's findings and plan as documented. SUBJECTIVE: Pt seen and examined in the ICU. Off narcan gtt, still feels disoriented and queasy. Unable to urinate which he states happens when he takes too much cocaine. Bedside ultrasound showing full bladder. OBJECTIVE: Last Vital Signs Temp Pulse Resp BP Pulse Ox 98.0 F 90 22 121/71 98 06/30/17 06:00 06/30/17 08:35 06/30/17 08:35 06/30/17 08:35 06/29/17 23:06 Intake & Output 06/27/17 06/28/17 06/29/17 06/30/17 23:59 23:59 23:59 23:59 Intake Total 1200 Output Total 900 Balance -900 1200 Weight 130 lb Gen: NAD at rest Heart: RRR Lung: decreased breath sounds at the bases Abd: soft, suprapubic distention Ext: no edema CBC, BMP 06/30/17 06:15 06/30/17 06:15 Active Medications Acetaminophen (Tylenol Suppository -) 650 mg [place] Q6H PRN PRN Reason: FEVER OR PAIN Chlorhexidine Gluconate (Hibiclens For Decolonization -) 1 applic TP HS [facility] Last Admin: 06/29/17 22:09 Dose: 1 applic Diazepam (Valium -) 5 mg PO TID [facility] Last Admin: 06/30/17 05:55 Dose: 5 mg Fluoxetine HCl (Prozac -) 30 mg PO DAILY [facility] Mupirocin (Bactroban Ointment (For Decolonization) -) 1 applic NS BID [facility] Stop: 07/04/17 21:59 Last Admin: 06/29/17 22:10 Dose: 1 applic Ondansetron HCl (Zofran Injection) 4 mg IVPUSH Q6H PRN PRN Reason: NAUSEA AND/OR VOMITING ASSESSMENT AND PLAN: Polysubstance Abuse Opioid Overdose - on valium - monitor for withdrawal - addiction medicine consult - PO as tolerated - straight cath - DVT prophylaxis - can monitor on floor
[2017-06-30 12:34] LABS: PH,URINE 7.5 (5.0-8.0); URINE APPEARANCE CLEAR; URINE BILIRUBIN NEGATIVE (NEGATIVE); URINE BLOOD NEGATIVE (NEGATIVE); URINE COLOR LT. YELLOW; URINE GLUCOSE (UA) NEGATIVE (NEGATIVE); URINE KETONE NEGATIVE (NEGATIVE); URINE LEUK ESTERASE NEGATIVE (NEGATIVE); URINE NITRITE NEGATIVE (NEGATIVE); URINE PROTEIN NEGATIVE (NEGATIVE); URINE UROBILINOGEN 0.2 mg/dL (0.2-1.0)
--- NOTE | 2017-06-30 12:37 | PN ---
Teaching Attending Note Name of Resident: Will Baxter ATTENDING PHYSICIAN STATEMENT I saw and evaluated the patient. I reviewed the resident's note and discussed the case with the resident. I agree with the resident's findings and plan as documented. SUBJECTIVE: Patient feels anxious. He is having difficulty urinating. OBJECTIVE: Vital Signs Period Temp Pulse Resp BP Sys/Escobar Pulse Ox Last 24 Hr 97.9 F-99.1 F 56-104 6-22 86-126/53-84 21-100 HEART: S1S2, RRR LUNGS: Clear ABDOMEN: Soft, non-tender, non-distended, normal BS EXTREMITIES: No edema Current Medications Generic Name Dose Route Start Last Admin Trade Name Freq PRN Reason Stop Dose Admin Acetaminophen 650 mg 06/29/17 21:07 Tylenol Suppository - [place] Q6H PRN FEVER OR PAIN Chlorhexidine Gluconate 1 applic 06/29/17 22:00 06/29/17 22:09 Hibiclens For Decolonization - TP 1 applic HS JG Administration Diazepam 5 mg 06/29/17 22:00 06/30/17 05:55 Valium - PO 5 mg TID JG Administration Fluoxetine HCl 30 mg 06/30/17 10:00 06/30/17 11:12 Prozac - PO 30 mg DAILY JG Administration Mupirocin 1 applic 06/29/17 22:00 06/30/17 11:08 Bactroban Ointment (For Decolonization) - NS 07/04/17 21:59 1 applic BID JG Administration Nicotine 21 mg 06/30/17 11:30 Nicoderm Patch - TD DAILY JG Ondansetron HCl 4 mg 06/29/17 22:26 Zofran Injection IVPUSH Q6H PRN NAUSEA AND/OR VOMITING ASSESSMENT AND PLAN: This is a 26 year old man with a history of ADHD, polysubstance abuse who presented to the ER from [facility] with altered mental status. 1. Acute toxic metabolic encephalopathy and acute hypoxic respiratory failure secondary to substance abuse, Methadone, Valium - Improving - Narcan drip discontinued - Hold Methadone - Continue oxygen to maintain saturation > 90% 2. Alcohol withdrawal - Continue Valium detox 3. Polysubstance abuse (cocaine, heroin, alcohol) 4. Continuous alcohol abuse 5. Nicotine dependence - Nicotine patch 6. Opioid dependence - Methadone held 7. Depression - Continue Prozac 8. ADHD
[2017-06-30] MEDS: NICOTINE 21 MG/24 HOURS TOPICAL PATCH TD SCH (12:48)
[2017-06-30] MEDS ORDERED: diazePAM 5 MG TABLET PO ONE (13:05)
--- NOTE | 2017-06-30 13:14 | PN ---
S Progress Note (SOAP) Subjective: anxiety, agitation, tremors, nausea, interrupted sleep, staff reports confusion noted at times Objective: 06/30/17 13:07 Vital Signs - 24 hr 06/29/17 06/29/17 06/29/17 14:23 14:32 16:08 Temperature 98.4 F Pulse Rate 58 L Pulse Rate [ 82 Right Radial] Respiratory 6 L 8 L Rate Blood Pressure 102/84 Blood Pressure 121/82 [Left Arm] O2 Sat by Pulse 21 L 100 100 Oximetry (%) 06/29/17 06/29/17 06/29/17 18:04 19:56 22:32 Temperature 97.9 F Pulse Rate Pulse Rate [ 104 H 84 Right Radial] Respiratory 14 16 14 Rate Blood Pressure Blood Pressure 110/74 114/78 [Left Arm] O2 Sat by Pulse 100 100 98 Oximetry (%) 06/29/17 06/29/17 06/29/17 22:53 22:55 23:06 Temperature 99.1 F 99.1 F Pulse Rate 82 82 Pulse Rate [ Right Radial] Respiratory 14 14 14 Rate Blood Pressure 126/84 126/84 Blood Pressure [Left Arm] O2 Sat by Pulse 98 Oximetry (%) 06/30/17 06/30/17 06/30/17 00:53 02:00 04:00 Temperature 98.9 F Pulse Rate 61 63 56 L Pulse Rate [ Right Radial] Respiratory 12 14 12 Rate Blood Pressure 114/64 112/59 86/65 Blood Pressure [Left Arm] O2 Sat by Pulse Oximetry (%) 06/30/17 06/30/17 06/30/17 06:00 08:35 10:00 Temperature 98.0 F 98.5 F Pulse Rate 71 90 Pulse Rate [ Right Radial] Respiratory 14 22 22 Rate Blood Pressure 122/66 121/71 121/72 Blood Pressure [Left Arm] O2 Sat by Pulse Oximetry (%) 06/30/17 12:00 Temperature Pulse Rate 87 Pulse Rate [ Right Radial] Respiratory 20 Rate Blood Pressure 104/53 Blood Pressure [Left Arm] O2 Sat by Pulse Oximetry (%) Laboratory Tests 06/29/17 06/29/17 06/29/17 15:00 15:00 16:05 WBC 7.2 11.4 H D RBC 2.97 L D 3.88 L D Hgb 8.8 L D 11.6 L D Hct 26.7 L D 34.6 L D MCV 90.0 89.4 MCH 29.6 29.9 MCHC 32.8 33.4 RDW 15.1 15.1 Plt Count 228 D 326 D MPV 6.9 L 7.3 L Neutrophils % 69.3 72.5 Lymphocytes % 20.7 17.5 Monocytes % 7.6 8.1 Eosinophils % 1.7 1.3 Basophils % 0.7 0.6 Sodium 143 Potassium 3.5 Chloride 108 H Carbon Dioxide 32 Anion Gap 3 L BUN 11 D Creatinine 0.6 L D Creat Clearance w eGFR > 60 Random Glucose 67 L Calcium 7.1 L Total Bilirubin 0.2 D AST 24 D ALT 23 Alkaline Phosphatase 60 D Total Protein 4.8 L D Albumin 2.4 L D Urine Color Urine Appearance Urine pH Ur Specific [place] Urine Protein Urine Glucose (UA) Urine Ketones Urine Blood Urine Nitrite Urine Bilirubin Urine Urobilinogen Ur Leukocyte Esterase Opiates Screen Methadone Screen Barbiturate Screen Phencyclidine Screen Ur Amphetamines Screen MDMA (Ecstasy) Screen Benzodiazepines Screen Cocaine Screen U Marijuana (THC) Screen 06/29/17 06/29/17 06/30/17 19:50 19:50 06:15 WBC 7.9 D RBC 4.09 Hgb 12.0 Hct 36.5 MCV 89.2 MCH 29.3 MCHC 32.9 RDW 15.1 Plt Count 293 MPV 7.0 L Neutrophils % Lymphocytes % Monocytes % Eosinophils % Basophils % Sodium Potassium Chloride Carbon Dioxide Anion Gap BUN Creatinine Creat Clearance w eGFR Random Glucose Calcium Total Bilirubin AST ALT Alkaline Phosphatase Total Protein Albumin Urine Color Ltyellow Urine Appearance Clear Urine pH 6.0 Ur Specific [place] 1.020 Urine Protein Negative Urine Glucose (UA) 1+ H Urine Ketones Negative Urine Blood Negative Urine Nitrite Negative Urine Bilirubin Negative Urine Urobilinogen Negative Ur Leukocyte Esterase Negative Opiates Screen Negative Methadone Screen Positive Barbiturate Screen Negative Phencyclidine Screen Negative Ur Amphetamines Screen Negative MDMA (Ecstasy) Screen Negative Benzodiazepines Screen Positive Cocaine Screen Positive U Marijuana (THC) Screen Negative 06/30/17 06/30/17 06:15 10:55 WBC RBC Hgb Hct MCV MCH MCHC RDW Plt Count MPV Neutrophils % Lymphocytes % Monocytes % Eosinophils % Basophils % Sodium 140 Potassium 3.9 Chloride 100 Carbon Dioxide 36 H Anion Gap 4 L BUN 7 D Creatinine 0.7 Creat Clearance w eGFR > 60 Random Glucose 107 H D Calcium 8.6 D Total Bilirubin 0.3 D AST 20 ALT 26 Alkaline Phosphatase 69 Total Protein 6.4 D Albumin 3.1 L D Urine Color Lt. yellow Urine Appearance Clear Urine pH 7.5 D Ur Specific [place] Urine Protein Negative Urine Glucose (UA) Negative Urine Ketones Negative Urine Blood Negative Urine Nitrite Negative Urine Bilirubin Negative Urine Urobilinogen 0.2 Ur Leukocyte Esterase Negative Opiates Screen Methadone Screen Barbiturate Screen Phencyclidine Screen Ur Amphetamines Screen MDMA (Ecstasy) Screen Benzodiazepines Screen Cocaine Screen U Marijuana (THC) Screen 06/30/17 13:14 labs noted Assessment: 06/30/17 13:08 patient continues to have alcohol iwthdrawawl sx and needs to be detoxed at [facility] Plan: cont detox from alcohol, withdrawal sx from alcohol still present - give valium 10mg x1 dose now, cont valium 5mg tid, discussed order/case with Dr. Horner (attending) hold methadone, narckennedy richard has been d/c. will discharge patient from ICU after 24 hours observation period and then transfer to admitting unit [facility] for readmission to complete detox and/or assess for rehab admission. Admitting unit notified, discussed case with Soco Melara RN. Please call with any additional questions Domenic Dalal MD [phone]
--- NOTE | 2017-06-30 14:16 | PN ---
Physical Exam: SUBJECTIVE: Patient seen and examined at bed side. He is much better than yesterday. He complains of fatigue, lethargy, anxiety, and urinary retention. Strait cath was used to empty his bladder. He denies any fever, chills, N/V,D/ C. OBJECTIVE: Vital Signs Period Temp Pulse Resp BP Sys/Escobar Pulse Ox Last 24 Hr 97.9 F-99.1 F 56-104 12-22 86-126/53-84 98-100 GENERAL: The patient is awake, alert, and fully oriented, in moderate distress. HEAD: Normal with no signs of trauma. EYES: PERRL, sclera anicteric, conjunctiva clear. No ptosis. ENT: Ears normal, moist mucous membranes. NECK: Trachea midline, full range of motion, supple. LUNGS: Breath sounds equal, clear to auscultation bilaterally, no wheezes, no crackles, no accessory muscle use. HEART: Regular rate and rhythm, S1, S2 without murmur, rub or gallop. ABDOMEN: Soft, nontender, nondistended, normoactive bowel sounds, no guarding, no rebound, no hepatosplenomegaly, no masses. EXTREMITIES: 2+ pulses, warm, well-perfused, no edema. NEUROLOGICAL: . Normal speech, gait not observed. PSYCH: depressed, confused. SKIN: Warm, dry, normal turgor, no rashes or lesions noted Laboratory Results - last 24 hr 06/29/17 06/29/17 06/30/17 19:50 19:50 06:15 WBC 7.9 D RBC 4.09 Hgb 12.0 Hct 36.5 MCV 89.2 MCH 29.3 MCHC 32.9 RDW 15.1 Plt Count 293 MPV 7.0 L Sodium Potassium Chloride Carbon Dioxide Anion Gap BUN Creatinine Creat Clearance w eGFR Random Glucose Calcium Total Bilirubin AST ALT Alkaline Phosphatase Total Protein Albumin Urine Color Ltyellow Urine Appearance Clear Urine pH 6.0 Ur Specific [place] 1.020 Urine Protein Negative Urine Glucose (UA) 1+ H Urine Ketones Negative Urine Blood Negative Urine Nitrite Negative Urine Bilirubin Negative Urine Urobilinogen Negative Ur Leukocyte Esterase Negative Opiates Screen Negative Methadone Screen Positive Barbiturate Screen Negative Phencyclidine Screen Negative Ur Amphetamines Screen Negative MDMA (Ecstasy) Screen Negative Benzodiazepines Screen Positive Cocaine Screen Positive U Marijuana (THC) Screen Negative 06/30/17 06/30/17 06:15 10:55 WBC RBC Hgb Hct MCV MCH MCHC RDW Plt Count MPV Sodium 140 Potassium 3.9 Chloride 100 Carbon Dioxide 36 H Anion Gap 4 L BUN 7 D Creatinine 0.7 Creat Clearance w eGFR > 60 Random Glucose 107 H D Calcium 8.6 D Total Bilirubin 0.3 D AST 20 ALT 26 Alkaline Phosphatase 69 Total Protein 6.4 D Albumin 3.1 L D Urine Color Lt. yellow Urine Appearance Clear Urine pH 7.5 D Ur Specific [place] Urine Protein Negative Urine Glucose (UA) Negative Urine Ketones Negative Urine Blood Negative Urine Nitrite Negative Urine Bilirubin Negative Urine Urobilinogen 0.2 Ur Leukocyte Esterase Negative Opiates Screen Methadone Screen Barbiturate Screen Phencyclidine Screen Ur Amphetamines Screen MDMA (Ecstasy) Screen Benzodiazepines Screen Cocaine Screen U Marijuana (THC) Screen Active Medications Generic Name Dose Route Start Last Admin Trade Name Freq PRN Reason Stop Dose Admin Acetaminophen 650 mg 06/29/17 21:07 Tylenol Suppository - ME Q6H PRN FEVER OR PAIN Chlorhexidine Gluconate 1 applic 06/29/17 22:00 06/29/17 22:09 Hibiclens For Decolonization - TP 1 applic HS JG Administration Diazepam 5 mg 06/29/17 22:00 06/30/17 05:55 Valium - PO 5 mg TID JG Administration Fluoxetine HCl 30 mg 06/30/17 10:00 06/30/17 11:12 Prozac - PO 30 mg DAILY JG Administration Mupirocin 1 applic 06/29/17 22:00 06/30/17 11:08 Bactroban Ointment (For Decolonization) - NS 07/04/17 21:59 1 applic BID JG Administration Nicotine 21 mg 06/30/17 11:30 06/30/17 12:48 Nicoderm Patch - TD 21 mg DAILY JG Administration Ondansetron HCl 4 mg 06/29/17 22:26 Zofran Injection IVPUSH Q6H PRN NAUSEA AND/OR VOMITING ASSESSMENT/PLAN: Patient 26 year old man with a history of ADHD, multiple substance abuse ( Alcohol, Heroin, cocain ) who presented to the ER from [facility] with altered mental status and hypoxemia , patient was admitted to ICU for further evaluation and treatment. # Acute toxic metabolic encephalopathy and acute hypoxic respiratory failure secondary to substance abuse, Methadone and Valium * Improving * Narcan drip was started in the ED. * Dc Narcan today * Hold Methadon * Continue oxygen to maintain saturation > 90% * CXR shows No acute pathology,will repeat CXR * will be D/C from the ICU after 24 hours observation to regular floor * consider transferring to [facility] care unit after being stable to complete detox there #Urinary retention likely 2/2 substance abuse * fail to pass urine after multiple attempts * Strait cath * monitor clinically * # Alcohol withdrawal * CIWA protocol * Valium 10 mg one dose ,Continue Valium 5 mg TID Detox * feel better than yesterday but still lethargic * Monitor clinically # multiple substance abuse (cocaine, heroin injection, alcohol), chronic * opioid overdose * on Valium * Monitor for withdrawal * addiction consult * PO as tolerated * # Alcohol dependence , Continuos * Alcohol abstinence * Behavioral consultation * * # Nicotine dependence * continue Nicotine patch # Opioid dependence * Methadone held * # Substance induce mood disorder,Depression * Continue Prozac # ADHD,chronic # Underwaight , malnutrition 2/2 polysubtance abuse * Consumer Affairs Director consult * PO as tolerated * Aspiration precautions * Zofran for N/V 4 mg IVpush Q 6Hr #FEN * on no fluids * E: WNL * N: PO as tolerated * # Dispo * Transfer to regular floor from ICU * Patient case was discussed with and medical team Will Baxter MD PGY1 Visit type - Emergency Visit Emergency Visit: Yes ED Registration Date: 06/29/17 Care time: The patient presented to the Emergency Department on the above date and was hospitalized for further evaluation of their emergent condition. - New Patient This patient is new to me today: Yes Date on this admission: 06/30/17 - Critical Care Critical Care patient: No - Discharge Referral Referred to [facility] Med P.C.: Yes
[2017-06-30] MEDS ORDERED: ACETAMINOPHEN 650 MG SUPP.RECT PR PRN (14:44)
[2017-06-30] MEDS ORDERED: ONDANSETRON 4 MG/2 ML VIAL IVPUSH PRN (14:44)
[2017-06-30] MEDS ORDERED: ZOLPIDEM TARTRATE 5 MG TABLET PO PRN (19:37)
[2017-06-30] MEDS: diazePAM 5 MG TABLET PO PRN (19:47)
[2017-06-30] MEDS ORDERED: CHLORHEXIDINE GLUCONATE 4% CLEANSER FOR DECOLONIZATION TP SCH (22:00)
[2017-06-30] MEDS ORDERED: ACETAMINOPHEN 325 MG TABLET (FP) PO PRN (23:04)
[2017-07-01] MEDS: diazePAM 5 MG TABLET PO SCH ×2 (06:43→14:26)
[2017-07-01] MEDS ORDERED: METHADONE HCL 10 MG TABLET PO SCH (07:00)
[2017-07-01 08:49] LABS: MCH 29.2 pg (25.7-33.7); MCHC 32.9 g/dl (32.0-35.9); MEAN PLT VOLUME 7.4 fl (7.5-11.1); PLATELET COUNT 321 K/MM3 (134-434); RDW 14.7 % (11.9-15.9); WHITE BLOOD COUNT 6.1 K/mm3 (4.0-10.0)
[2017-07-01 09:17] LABS: ALBUMIN 3.3 g/dl (3.4-5.0); ANION GAP 5 (8-16); CO2 37 mmol/L (21-32); GLUCOSE,RANDOM 92 mg/dL (74-106)
[2017-07-01 09:20] LABS: ALK PHOS 77 U/L (45-117); BILIRUBIN,TOTAL 0.3 mg/dL (0.2-1.0); CREATININE 0.7 mg/dL (0.7-1.3); SGOT/AST 25 U/L (15-37); SGPT/ALT 30 U/L (12-78); TOT PROT 6.7 g/dl (6.4-8.2)
[2017-07-01] MEDS ORDERED: PT OWN MED DRAWER 7, Y5N ONE (09:34)
[2017-07-01] MEDS: NICOTINE 21 MG/24 HOURS TOPICAL PATCH TD SCH (09:41)
[2017-07-01] MEDS: MUPIROCIN 2% TOPICAL OINTMENT FOR DECOLONIZATION NS SCH (09:42)
[2017-07-01] MEDS: ALBUTEROL SO4 2.5/IPRATROPIUM 0.5 INH SOL 3 ML VIAL.NEB. NEB PRN ×2 (09:44→14:10)
[2017-07-01] MEDS: diazePAM 5 MG TABLET PO PRN (09:48)
[2017-07-01] MEDS ORDERED: FLUoxetine HCL 10 MG CAPSULE (FP) PO SCH (10:00)
--- NOTE | 2017-07-01 10:54 | PN ---
Physical Exam: SUBJECTIVE: Patient seen and examined at bed side. He is much better than yesterday. He complains of some difficulty breathing,fatigue, lethargy, anxiety. Urinary retention resolved ,He has polyuria. He denies any fever, chills, N/V,D/C. OBJECTIVE: Vital Signs Period Temp Pulse Resp BP Sys/Escobar Pulse Ox Last 24 Hr 98.1 F-98.8 F 64-99 18-20 104-137/53-87 GENERAL: The patient is awake, alert, and fully oriented, in no acute distress. HEAD: Normal with no signs of trauma. EYES: PERRL, extraocular movements intact, sclera anicteric, conjunctiva clear. No ptosis. ENT: Ears normal, nares patent, oropharynx clear without exudates, moist mucous membranes. NECK: Trachea midline, full range of motion, supple. LUNGS: Breath sounds equal, clear to auscultation bilaterally, no wheezes, no crackles, no accessory muscle use. HEART: Regular rate and rhythm, S1, S2 without murmur, rub or gallop. ABDOMEN: Soft, nontender, nondistended, normoactive bowel sounds, no guarding, no rebound, no hepatosplenomegaly, no masses. EXTREMITIES: 2+ pulses, warm, well-perfused, no edema. NEUROLOGICAL: Cranial nerves II through XII grossly intact. Normal speech, gait not observed. PSYCH: Normal mood, normal affect. SKIN: Warm, dry, normal turgor, no rashes or lesions noted Laboratory Results - last 24 hr 06/29/17 06/30/17 07/01/17 19:50 10:55 07:00 WBC 6.1 RBC 4.59 Hgb 13.4 D Hct 40.9 MCV 89.0 MCH 29.2 MCHC 32.9 RDW 14.7 Plt Count 321 MPV 7.4 L Sodium Potassium Chloride Carbon Dioxide Anion Gap BUN Creatinine Creat Clearance w eGFR Random Glucose Calcium Total Bilirubin AST ALT Alkaline Phosphatase Total Protein Albumin Urine Color Ltyellow Lt. yellow Urine Appearance Clear Clear Urine pH 6.0 7.5 D Ur Specific [place] 1.020 1.020 Urine Protein Negative Negative Urine Glucose (UA) 1+ H Negative Urine Ketones Negative Negative Urine Blood Negative Negative Urine Nitrite Negative Negative Urine Bilirubin Negative Negative Urine Urobilinogen Negative 0.2 Ur Leukocyte Esterase Negative Negative 07/01/17 07:00 WBC RBC Hgb Hct MCV MCH MCHC RDW Plt Count MPV Sodium 140 Potassium 4.5 Chloride 98 Carbon Dioxide 37 H Anion Gap 5 L BUN 13 D Creatinine 0.7 Creat Clearance w eGFR > 60 Random Glucose 92 Calcium 9.0 Total Bilirubin 0.3 AST 25 D ALT 30 Alkaline Phosphatase 77 Total Protein 6.7 Albumin 3.3 L Urine Color Urine Appearance Urine pH Ur Specific [place] Urine Protein Urine Glucose (UA) Urine Ketones Urine Blood Urine Nitrite Urine Bilirubin Urine Urobilinogen Ur Leukocyte Esterase Active Medications Generic Name Dose Route Start Last Admin Trade Name Freq PRN Reason Stop Dose Admin Acetaminophen 650 mg 06/30/17 23:04 Tylenol - PO Q6H PRN FEVER OR PAIN Albuterol/Ipratropium 1 amp 07/01/17 08:34 07/01/17 09:44 Duoneb - NEB 1 amp Q4H PRN Administration SHORTNESS OF BREATH Chlorhexidine Gluconate 1 applic 06/30/17 22:00 06/30/17 21:29 Hibiclens For Decolonization - TP Not Given HS JG Diazepam 5 mg 06/30/17 22:00 07/01/17 06:43 Valium - PO 5 mg TID JG Administration Diazepam 10 mg 06/30/17 19:36 07/01/17 09:48 Valium - PO 10 mg Q8H PRN Administration ANXIETY/WITHDRAWAL Fluoxetine HCl 30 mg 07/01/17 10:00 07/01/17 09:42 Prozac - PO 30 mg DAILY JG Administration Methadone HCl 10 mg 07/01/17 07:00 07/01/17 07:06 Dolophine - PO 10 mg DAILY@0700 JG Administration Mupirocin 1 applic 06/30/17 22:00 07/01/17 09:42 Bactroban Ointment (For Decolonization) - NS 07/04/17 21:59 Not Given BID JG Nicotine 21 mg 06/30/17 11:30 07/01/17 09:41 Nicoderm Patch - TD 21 mg DAILY JG Administration Ondansetron HCl 4 mg 06/30/17 14:44 Zofran Injection IVPUSH Q6H PRN NAUSEA AND/OR VOMITING Zolpidem Tartrate 5 mg 06/30/17 19:37 06/30/17 23:19 Ambien - PO 5 mg HS PRN Administration INSOMNIA ASSESSMENT/PLAN: Patient 26 year old man with a history of ADHD, multiple substance abuse ( Alcohol, Heroin, cocain ) who presented to the ER from [facility] with altered mental status and hypoxemia , patient was admitted to ICU for further evaluation and treatment. # Acute toxic metabolic encephalopathy and acute hypoxic respiratory failure secondary to substance abuse, Methadone and Valium * Improved * Narcan drip was started in the ED. * Dc Narcan today * Methadon 10 PO daily for 7 days * Continue oxygen to maintain saturation > 90% * CXR shows No acute pathology,will repeat CXR * D/C from the ICU after 24 hours observation to regular floor # Mild Difficulty breathing Likely 2/2 substance abuse vs meds vs Pneumonia * crackles on the base left lung * repeat CXR * Intensive Spirometer * Duoneb : 1amb neb Q4h PRN * * #Urinary retention likely 2/2 substance abuse * resolved * monitor clinically * had multiple urination today (polyuria ) Likely 2/2 to substance withdrawal # Alcohol withdrawal * CIWA protocol * Valium 10 mg PO Q Hr PRN ,Continue Valium 5 mg TID Detox * feel better than yesterday but still lethargic * Monitor clinically # multiple substance abuse (cocaine, heroin injection, alcohol), chronic * opioid overdose * on Valium * Monitor for withdrawal * addiction consult * PO as tolerated * # Alcohol dependence , Continuos * Alcohol abstinence * Behavioral therapy consult * * # Nicotine dependence * continue Nicotine patch 21 mg TD daily # Opioid dependence * continue Methadone 10 mg PO daily for 7 days per detox doctor * # Substance induce mood disorder,Depression * Continue Prozac 30 mg PO Daily # ADHD,chronic # Underwaight , malnutrition 2/2 polysubtance abuse * Sewing Line Baler consult * PO as tolerated * Aspiration precautions * Zofran for N/V 4 mg IVpush Q 6Hr #FEN * on no fluids * E: WNL * N: PO as tolerated * # Dispo * rehab /detox when medically stable * Patient case was discussed with and medical team Will Baxter MD PGY1 Visit type - Emergency Visit Emergency Visit: Yes ED Registration Date: 06/29/17 Care time: The patient presented to the Emergency Department on the above date and was hospitalized for further evaluation of their emergent condition. - New Patient This patient is new to me today: No - Critical Care Critical Care patient: No
[2017-07-01 12:43] VITALS: TEMP 98
--- NOTE | 2017-07-01 14:50 | PN ---
Teaching Attending Note Name of Resident: Will Baxter ATTENDING PHYSICIAN STATEMENT I saw and evaluated the patient. I reviewed the resident's note and discussed the case with the resident. I agree with the resident's findings and plan as documented. SUBJECTIVE: Patient felt SOB after receiving Valium and Methadone. OBJECTIVE: Vital Signs Period Temp Pulse Resp BP Sys/Escobar Pulse Ox Last 24 Hr 98 F-98.1 F 61-99 18-20 98-137/52-87 98 HEART: S1S2, RRR LUNGS: Wheezes at left base, crackles left upper lung ABDOMEN: Soft, non-tender, non-distended, normal BS EXTREMITIES: No edema Current Medications Generic Name Dose Route Start Last Admin Trade Name Freq PRN Reason Stop Dose Admin Acetaminophen 650 mg 06/30/17 23:04 Tylenol - PO Q6H PRN FEVER OR PAIN Albuterol/Ipratropium 1 amp 07/01/17 08:34 07/01/17 09:44 Duoneb - NEB 1 amp Q4H PRN Administration SHORTNESS OF BREATH Chlorhexidine Gluconate 1 applic 06/30/17 22:00 06/30/17 21:29 Hibiclens For Decolonization - TP Not Given HS GJ Diazepam 5 mg 06/30/17 22:00 07/01/17 14:26 Valium - PO 5 mg TID JG Administration Diazepam 10 mg 06/30/17 19:36 07/01/17 09:48 Valium - PO 10 mg Q8H PRN Administration ANXIETY/WITHDRAWAL Fluoxetine HCl 30 mg 07/01/17 10:00 07/01/17 09:42 Prozac - PO 30 mg DAILY JG Administration Methadone HCl 10 mg 07/01/17 07:00 07/01/17 07:06 Dolophine - PO 10 mg DAILY@0700 JG Administration Mupirocin 1 applic 06/30/17 22:00 07/01/17 09:42 Bactroban Ointment (For Decolonization) - NS 07/04/17 21:59 Not Given BID JG Nicotine 21 mg 06/30/17 11:30 07/01/17 09:41 Nicoderm Patch - TD 21 mg DAILY JG Administration Ondansetron HCl 4 mg 06/30/17 14:44 Zofran Injection IVPUSH Q6H PRN NAUSEA AND/OR VOMITING Zolpidem Tartrate 5 mg 06/30/17 19:37 06/30/17 23:19 Ambien - PO 5 mg HS PRN Administration INSOMNIA ASSESSMENT AND PLAN: This is a 26 year old man with a history of ADHD, polysubstance abuse who presented to the ER from [facility] with altered mental status. 1. Acute toxic metabolic encephalopathy and acute hypoxic respiratory failure secondary to substance abuse, Methadone, Valium - Improved - Narcan drip discontinued - Continue oxygen to maintain saturation > 90% 2. Alcohol withdrawal - Continue Valium detox 3. Polysubstance abuse (cocaine, heroin, alcohol) 4. Continuous alcohol abuse 5. Nicotine dependence - Nicotine patch 6. Opioid dependence - Methadone restarted at lower dose 7. Dyspnea - CXR - DuoNeb treatments 8. Depression - Continue Prozac 9. ADHD
[2017-07-01 15:39] VITALS: BP 100/60; PULSE 68
--- NOTE | 2017-07-04 16:55 | DS ---
Physical Exam: SUBJECTIVE: Patient seen and examined at bed side. he is improving with treatment. I was paged by the nurse and informed me that the patient would like to leave AM. After discussing the benefits and the risk he incest to leave to [place] to help his grandfather. OBJECTIVE: PHYSICAL EXAM GENERAL: The patient is awake, alert, and fully oriented, in no acute distress. HEAD: Normal with no signs of trauma. EYES: PERRL, extraocular movements intact, sclera anicteric, conjunctiva clear. ENT: Ears normal, nares patent, oropharynx clear without exudates, moist mucous membranes. NECK: Trachea midline, full range of motion, supple. LUNGS: Breath sounds equal, clear to auscultation bilaterally, no wheezes, no crackles, no accessory muscle use. HEART: Regular rate and rhythm, S1, S2 without murmur, rub or gallop. ABDOMEN: Soft, nontender, nondistended, normoactive bowel sounds, no guarding, no rebound, no hepatosplenomegaly, no masses. EXTREMITIES: 2+ pulses, warm, well-perfused, no edema. NEUROLOGICAL: Cranial nerves II through XII grossly intact. Normal speech, gait not observed. PSYCH: Normal mood, normal affect. SKIN: Warm, dry, normal turgor, no rashes or lesions noted. LABS HOSPITAL COURSE: Date of Admission:06/29/17 Date of Discharge: 07/04/17 This is a 26 year old man with a history of ADHD, polysubstance abuse who presented to the ER from [facility] with altered mental status. He was treatedfor Acute toxic metabolic encephalopathy and acute hypoxic respiratory failure secondary to substance abuse, Methadone, Valium with Narcan drip and Continue oxygen to maintain saturation > 90% and Valium and Nicotine dependence was treated Nicotine patch. Methadone low dose was used to treat opioid dependance. He had dyspnea was treated with Duneb and CXr show no acute pathology. and we continue Prozac to treat depression. Patient improved but he was still recieving detox but he decide to leave Against medical advice, he claimed that he needs to go see his grandfather in [place] and all the benefits and the risk was explained to the patient he left AMA around 6 pm. Minutes to complete discharge: 30 Discharge Summary Reason For Visit: BENZODIAZEPINE [employer]ED [employer]QUILIZ[employer] Condition: Critical - Instructions Disposition: AGAINST MEDICAL ADVICE - Home Medications Comprehensive Discharge Medication List: Ambulatory Orders Dextroamphetamine/Amphetamine [Adderall Xr 15 mg Capsule] 1 tab PO BID 06/30/17 Fluoxetine HCl [Prozac -] 20 mg PO DAILY 06/30/17 Lorazepam [Ativan] 1 mg PO BID PRN 06/30/17 This patient is new to me today: No Emergency Visit: Yes ED Registration Date: 06/29/17 Care time: The patient presented to the Emergency Department on the above date and was hospitalized for further evaluation of their emergent condition. Critical Care patient: Yes Total Critical Care Time (in minutes): 40 Critical Care Statement: The care of this patient involved high complexity decision making to prevent further life threatening deterioration of the patient 's condition and/or to evaluate & treat vital organ system(s) failure or risk of failure. - Discharge Referral Referred to [id number] Med P.C.: No
== END 2017-07-01 18:22 | disposition left against medical advice (07) | DRG 812 ==
LOC: JER 13:22 → JERBED 16:59 → JICU 20:37 → J8W 06-30 17:42 → J6S 07-01 15:57
PROVIDERS: ADMIT Internal Medicine; ATTEND Internal Medicine
DX: T40.3X5A Adverse effect of methadone, initial encounter (principal); G92 Toxic encephalopathy; F90.8 Attention-deficit hyperactivity disorder, other type; F17.219 Nicotine dependence, cigarettes, with unspecified nicotine-induced disorders; F10.230 Alcohol dependence with withdrawal, uncomplicated; F11.20 Opioid dependence, uncomplicated; F19.94 Other psychoactive substance use, unspecified with psychoactive substance-induced mood disorder; Z68.1 Body mass index [BMI] 19.9 or less, adult; T42.4X5A Adverse effect of benzodiazepines, initial encounter; Y92.238 Other place in hospital as the place of occurrence of the external cause; R33.8 Other retention of urine; J96.01 Acute respiratory failure with hypoxia; F32.9 Major depressive disorder, single episode, unspecified; E46 Unspecified protein-calorie malnutrition; Z59.0 Homelessness
CPT/HCPCS: 36415; 71010-TC; 80053; 80307; 81003; 85025; 85027; 93005; 93010; 94010; 94640; 99283-25